=== PATIENT | female | born 1985 | race Caucasian/White ===

== ENCOUNTER 2020-05-18 01:33 | Emergency (ER) | payer MEDICAID, SELFPAY ==
[2020-05-18 01:40] VITALS: BP 146/87; PULSE 107; RESP 18; TEMP 36.7; O2SAT 98; BMI 25.1
--- NOTE | 2020-05-18 01:49 | ECG_ITS ---
Test Reason : CP Blood Pressure : / mmHG Vent. Rate : 083 BPM Atrial Rate : 083 BPM P-R Int : 150 ms QRS Dur : 084 ms QT Int : 396 ms P-R-T Axes : 041 044 025 degrees QTc Int : 465 ms Normal sinus rhythm with sinus arrhythmia Poor R progression anterior leads, possibly from lead placement or body habitus Otherwise Normal ECG No previous ECGs available Referred By: Barbra Ramires Electronically Signed By:GILBERT GARCIA
--- NOTE | 2020-05-18 02:36 | XR_ITS ---
EXAMINATION: XR CHEST CLINICAL INFORMATION: Lungs burning COMPARISON: None TECHNIQUE: Frontal view of the chest was obtained. FINDINGS: Lung volumes are symmetric. No focal consolidation is seen. No evidence of pneumothorax, pleural effusion, or pulmonary edema. The cardiomediastinal contour is unremarkable. No acute osseous findings are seen. XR/XR chest 1V IMPRESSION: No acute cardiopulmonary findings.
--- NOTE | 2020-05-18 02:38 | ED.CHESTPAIN ---
HPI - Chest Pain General Chief Complaint: Chest Pain Stated Complaint: CHEST TIGHTNESS Time Seen by Provider: 05/18/20 01:49 Source: patient Mode of arrival: ambulatory Limitations: no limitations History of Present Illness HPI narrative: Patient comes emergency room complaining of chest tightness, burning sensation in her lungs. Patient states it has been present for about a week now. Patient states that she is concerned that 1 week ago when she went to the [facility], they did a quick physical exam and they told the patient that she has a heart murmur. Patient states this is the 1st time that she hears that she has a heart murmur. Patient admits to continue using IV drugs. Last use was this morning MD complaint: chest discomfort Related Data Allergies Allergy/AdvReac Type Severity Reaction Status Date / Time No Known Allergies Allergy Verified 05/18/20 01:49 Review of Systems Review of Systems: Constitutional : No Weight loss, No Fever, No Chills, No Night Sweats, No Fatigue, No Malaise ENT/Mouth : No Hearing loss, No Ear Pain, No Nasal Congestion, No Sinus Pain, No Hoarseness, No sore throat, No Rhinorrhea, No Swallowing Difficulty Eyes: No Eye Pain, No Swelling, No Redness, No Foreign Body, No Discharge, No Vision Changes Cardiovascular : Complaining of chest tightness No SOB, No Dyspnea on Exertion, No Orthopnea, No Edema, No Palpitations Respiratory : No Cough, No Sputum, No Wheezing, No Smoke Exposure, No Dyspnea, complaining lung burning sensation in the lungs Gastrointestinal : No Nausea, No Vomiting, No Diarrhea, No Constipation, No abdominal Pain, No Hematochezia, No Melena Genitourinary : no irregular bleeding, No Dysuria, No Urinary Frequency, No Hematuria, No Urinary Incontinence, No Urgency, No Flank Pain, No Urinary Flow Changes, No Hesitancy Musculoskeletal : No joint pain, No Myalgias, No Joint Swelling Skin : No Skin Lesions, No rash Neuro : No Weakness, No Numbness, No Paresthesias, No Loss of Consciousness, No Dizziness, No Headache Psych : No Anxiety/Panic, No Depression, No SI/HI/AH/VH, No Social Issues, Heme/Lymph: No Bruising, No Bleeding,No Lymphadenopathy Endocrine : No Polyuria, No Polydipsia, No Temperature Intolerance PMFSH Past Medical History Medical History No known health problems Social History Social History Advance Directives: No Advance Directives Information Provided: No Physical Exam Vital Signs: Vital Signs: Last Vital Signs Temp 98.1 F 05/18/20 01:40 Pulse 107 H 05/18/20 01:40 Resp 18 05/18/20 01:40 BP 146/87 H 05/18/20 01:40 Pulse Ox 98 05/18/20 01:40 Body Mass Index 25.1 Appearance: Alert. Oriented X3. No acute distress. Eyes: Pupils equal, round and reactive to light. ENT: Pharynx normal. Neck: Normal inspection. Neck supple. No lymph nodes noted. No crepitus CVS: Normal heart rate and rhythm. Pulses normal. Normal S1 and S2, soft 2/6 systolic murmur Respiratory: No respiratory distress. Breath sounds normal. No Wheezing. No rales Abdomen: Soft and nontender. No rigidity. No distention. good BS x4 Skin: Skin warm and dry. Normal skin color. Normal skin turgor. Extremities: No lower extremity edema. No lower extremity edema. No Lacerations. No Rash Neuro: Oriented X 3. No motor deficit. No sensory deficit. Moving all extermities. No slurred speech. Course Course Course Narrative: I discussed the patient with Dr. Dorado. Patient has a new murmur to her knowledge, patient has no fever, no chills, not elevated white blood cell count, however patient does have 2/6 systolic murmur, patient is asymptomatic and feeling well otherwise. Patient is an active IV drug user. Endocarditis needs to be ruled out. Patient does not have a primary care physician. In the morning, the hospitalist day team will help decide if the patient is going to be admitted and get an echocardiogram as an inpatient, or keep the patient in the ER, get an echocardiogram done and if negative, discharge the patient. Pending admission versus discharge from the ER. I discussed the above-mentioned plan with the patient, patient states that the physician who did the physical exam at the methadone clinic and heard the murmur, ordered an outpatient echocardiogram and soon she will know when her appointment for the echocardiogram is. At this time, patient's chemistry is pending. Patient is requesting to be discharged because she needs to be at work in less than an hour. Unfortunately, patient's chemistry hemolyzed twice. At this time, sepsis is not suspected, there is very low suspicion for endocarditis, patient is asymptomatic, white blood cell count is within normal limits, no lactic acidosis, no fever. Patient states she feels completely normal at this time. Patient will follow-up as scheduled for her echocardiogram. I discussed with the patient that if for any reason she is unable to get an echocardiogram, to return to emergency room MDM - Chest Pain Lab Data Result diagrams: 05/18/20 03:35 05/18/20 03:08 Labs: Lab Results 05/18/20 05/18/20 05/18/20 Range/Units 02:56 02:56 03:07 WBC (4.8-10.8) X10*3/uL RBC (4.20-5.50) X10*6/uL Hgb (12.0-16.0) g/dl Hct (37-47) % MCV (80-98) fL MCH (27.0-33.0) pg MCHC (31.0-35.0) g/dl RDW (11.0-16.0) % Plt Count (160-400) X10*3/uL MPV (9.4-12.3) fL Immature Gran % (Auto) (0.0-0.4) % Neut % (Auto) (45-73) % Lymph % (Auto) (20-40) % [place] % (Auto) (2-11) % Eos % (Auto) (0-4) % Baso % (Auto) (0-2) % Lymph # (Auto) (1.2-4.9) X10*3/uL [place] # (Auto) (0.1-1.2) X10*3/uL Eos # (Auto) (0.0-0.4) X10*3/uL Baso # (Auto) (0.0-0.2) X10*3/uL Abs Immat Gran (auto) (0.00-0.03) X10*3/uL Absolute Neuts (auto) (2.0-8.3) X10*3/uL Absolute Nucleated RBC (0.0-0.012) X10*3/uL Nucleated RBC % (auto) (0.0-0.2) /100WBC Lactic Acid (0.5-2.0) mmol/L Troponin I High Sens < 3.5 (<3.5-17.0) ng/L Urine Color YELLOW Urine Appearance CLEAR Urine pH 6.5 (5.0-8.0) Ur Specific [place] 1.010 (1.005-1.025) Urine Protein NEG (NEG-TRACE) MG/DL Urine Glucose (UA) NEG (NEG) MG/DL Urine Ketones NEG (NEG) MG/DL Urine Blood NEG (NEG) Urine Nitrite NEG (NEG) Ur Leukocyte Esterase 1+ H (NEG) Urine RBC 1-4 (0) /HPF Urine WBC 1-4 (0-4) /HPF Ur Squamous Epith Cells 1+ /LPF Urine Bacteria 1+ /LPF Urine Test NEGATIVE (NEGATIVE) Urine Opiates Screen POSITIVE H (Not Detect) Ur Barbiturates Screen Not Detected (Not Detect) Ur Phencyclidine Scrn Not Detected (Not Detect) Ur Amphetamines Screen Not Detected (Not Detect) U Benzodiazepines Scrn Not Detected (Not Detect) Urine Cocaine Screen POSITIVE H (Not Detect) U Marijuana (THC) Screen Not Detected (Not Detect) 05/18/20 05/18/20 Range/Units 03:08 03:35 WBC 5.3 (4.8-10.8) X10*3/uL RBC 3.89 L (4.20-5.50) X10*6/uL Hgb 11.3 L (12.0-16.0) g/dl Hct 34.3 L (37-47) % MCV 88.2 (80-98) fL MCH 29.0 (27.0-33.0) pg MCHC 32.9 (31.0-35.0) g/dl RDW 12.9 (11.0-16.0) % Plt Count 332 (160-400) X10*3/uL MPV 8.3 L (9.4-12.3) fL Immature Gran % (Auto) 0.2 (0.0-0.4) % Neut % (Auto) 49.4 (45-73) % Lymph % (Auto) 43.8 H (20-40) % [place] % (Auto) 5.1 (2-11) % Eos % (Auto) 1.1 (0-4) % Baso % (Auto) 0.4 (0-2) % Lymph # (Auto) 2.3 (1.2-4.9) X10*3/uL [place] # (Auto) 0.3 (0.1-1.2) X10*3/uL Eos # (Auto) 0.1 (0.0-0.4) X10*3/uL Baso # (Auto) 0.0 (0.0-0.2) X10*3/uL Abs Immat Gran (auto) 0.01 (0.00-0.03) X10*3/uL Absolute Neuts (auto) 2.6 (2.0-8.3) X10*3/uL Absolute Nucleated RBC 0.000 (0.0-0.012) X10*3/uL Nucleated RBC % (auto) 0.0 (0.0-0.2) /100WBC Lactic Acid 0.9 (0.5-2.0) mmol/L Troponin I High Sens (<3.5-17.0) ng/L Urine Color Urine Appearance Urine pH (5.0-8.0) Ur Specific [place] (1.005-1.025) Urine Protein (NEG-TRACE) MG/DL Urine Glucose (UA) (NEG) MG/DL Urine Ketones (NEG) MG/DL Urine Blood (NEG) Urine Nitrite (NEG) Ur Leukocyte Esterase (NEG) Urine RBC (0) /HPF Urine WBC (0-4) /HPF Ur Squamous Epith Cells /LPF Urine Bacteria /LPF Urine Test (NEGATIVE) Urine Opiates Screen (Not Detect) Ur Barbiturates Screen (Not Detect) Ur Phencyclidine Scrn (Not Detect) Ur Amphetamines Screen (Not Detect) U Benzodiazepines Scrn (Not Detect) Urine Cocaine Screen (Not Detect) U Marijuana (THC) Screen (Not Detect) ECG Data ECG #1: Attestation: I personally reviewed and interpreted this ECG as follows: (Heart rate 83, sinus rhythm, QTC 465, no ST segment depressions or elevations, no T-wave inversions.) Discharge Plan Discharge Clinical Impression: Atypical chest pain, Newly recognized heart murmur Patient Disposition: Home, Self-Care Instructions: Heart Murmur (ED) Additional Instructions: Please follow-up with your methadone clinic and please make sure that you have a date for your echocardiogram. Please follow-up with your primary care physician tomorrow. If you have any worsening or new symptoms, please return to the emergency room or call 911
[2020-05-18 03:25] LABS: Glucose Urine UA NEG (NEG); Leukocyte Esterase Urine 1+ (NEG); Nitrite Urine NEG (NEG); PH 6.5 (5.0-8.0); Urine Blood NEG (NEG); Urine Ketones NEG (NEG); Urine Protein NEG (NEG-TRACE)
--- NOTE | 2020-05-18 03:30 | PC.NURSE ---
IV PLACED TO [facility], LABS DRAWN TO LAB. PT UP AND WALKS WITH STEADY EVEN GAIT TO RESTROOM FOR URINE SAMPLE TO LAB FOR EVAL. WILL CONTINUE TO MONITOR PT.
[2020-05-18 03:32] LABS: Appearance Urine CLEAR; Bacteria Urine 1+ /LPF; Color Urine YELLOW; Squamous Epithelial Cell Urine 1+ /LPF
[2020-05-18 03:33] LABS: UPreg QC Valid YES; Urine Pregnancy NEGATIVE (NEGATIVE)
[2020-05-18 03:42] LABS: Lactic Acid 0.9 mmol/L (0.5-2.0)
[2020-05-18 03:44] LABS: Basophils Percent Auto 0.4 % (0-2); Eosinophils Absolute Auto 0.1 X10*3/uL (0.0-0.4); Eosinophils Percent Auto 1.1 % (0-4); Hematocrit 34.3 % (37-47); Hemoglobin 11.3 g/dl (12.0-16.0); Imm Gran Abs Auto 0.01 X10*3/uL (0.00-0.03); Imm Gran Pct Auto 0.2 % (0.0-0.4); Lymphocytes Absolute Auto 2.3 X10*3/uL (1.2-4.9); Lymphocytes Percent Auto 43.8 % (20-40); Mean Corpuscular HGB Conc 32.9 g/dl (31.0-35.0); Mean Corpuscular Volume 88.2 fL (80-98); Mean Platelet Volume 8.3 fL (9.4-12.3); Monocytes Absolute Auto 0.3 X10*3/uL (0.1-1.2); Monocytes Percent Auto 5.1 % (2-11); Neutrophils Absolute Auto 2.6 X10*3/uL (2.0-8.3); Neutrophils Percent Auto 49.4 % (45-73); Platelet Count 332 X10*3/uL (160-400); Red Blood Count 3.89 X10*6/uL (4.20-5.50); Red Cell Distribution Width 12.9 % (11.0-16.0); White Blood Count 5.3 X10*3/uL (4.8-10.8)
[2020-05-18 03:47] LABS: MANUAL DIFF FLAG NO
[2020-05-18 03:53] LABS: Troponin-I High Sensitivity < 3.5 ng/L (<3.5-17.0)
--- NOTE | 2020-05-18 03:57 | PC.NURSE ---
PT TO ROOM #9 WITH C/O CHEST TIGHTNESS PT WAS TOLD SHE HAD A HEART MURMUR. PT IS CONCERNED BECAUSE OF IV DRUG ABUSE. PT CHG INTO GOWN. EKG OBTAINED TO . PT ARRIVES ALERT, RESPIRATIONS EASY, N/L. SKIN W/D. PT DENIES ANY OTHER COMPLAINTS.
[2020-05-18 04:02] LABS: Amphetamine Screen Urine Not Detected (Not Detect); Barbiturates, Urine Not Detected (Not Detect); Benzodiazepines Screen Urine Not Detected (Not Detect); Cannabinoid Screen Urine Not Detected (Not Detect); Cocaine Screen Urine POSITIVE (Not Detect); Opiate Screen Urine POSITIVE (Not Detect); Phencyclidine Screen Urine Not Detected (Not Detect)
[2020-05-18 05:29] LABS: Alanine Aminotransferase 22 U/L (0-31); Albumin Level 4.7 g/dL (3.5-5.0); Alkaline Phosphatase 163 U/L (39-117); Anion Gap 14 (12-20); Aspartate Amino Transferase 20 U/L (5-31); Bilirubin Direct < 0.2 mg/dL (0.0-0.5); Bilirubin Total 0.3 mg/dL (0.0-1.0); Blood Urea Nitrogen 8 mg/dL (9-16); Calcium 9.4 mg/dL (8.4-10.2); Carbon Dioxide 27 mmol/L (22-29); Chloride 105 mmol/L (96-108); Creatinine Clr Calc Pharmacy 98.7; Estimated Glomerular Filt Rate > 60; Glucose Random 91 mg/dL (60-115); Potassium 4.3 mmol/l (3.3-5.1); Sodium 142 mmol/L (135-145); Total Protein 8.4 g/dL (6.5-8.0)
== END 2020-05-18 05:05 | disposition home or self-care (01) ==
PROVIDERS: Emergency Provider Emergency Medicine
DX: R07.89 Other chest pain (principal); R01.1 Cardiac murmur, unspecified; F11.20 Opioid dependence, uncomplicated; F17.210 Nicotine dependence, cigarettes, uncomplicated
CPT/HCPCS: 36415; 71045; 80048; 80076; 80307; 81001; 81025; 83605; 84484; 85025; 87040; 87086; 93005; 99283

== ENCOUNTER 2020-05-20 00:14 | Emergency (ER) | payer MEDICAID, SELFPAY ==
[2020-05-20 00:36] VITALS: BP 146/91; PULSE 108; RESP 18; TEMP 36.8; O2SAT 98; BMI 21.7
--- NOTE | 2020-05-20 00:45 | ED_ITS ---
HPI - General Adult General Chief complaint: General Medical Stated complaint: upper abd pain Time Seen by Provider: 05/20/20 00:20 Source: patient and old records reviewed Mode of arrival: ambulatory Limitations: no limitations History of Present Illness HPI narrative: 34 yo female IVDA here with dx new heart murmur on 05/18 she was offered ECHO at that time but she had to leave, she denies fevers, has some vague upper abdominal pain but no n/v/d no dyspnea - she is not toxic, I told her at this time of night I could not obtain STAT ECHO - with this news she decided she didn't want to stay in the ED, she refused repeat labs/testing while in the ED complaint: wants ECHO Onset (ago): day(s) () Location: chest and abdomen Radiation: non-radiation Severity: mild Quality: dull Pain Consistency: constant Relieving factors: none Exacerbating factors: none Associated symptoms: denies other symptoms Treatments prior to arrival: none Related Data Allergies Allergy/AdvReac Type Severity Reaction Status Date / Time No Known Allergies Allergy Verified 05/18/20 01:49 Review of Systems Review of Systems: Constitutional : No Weight loss, No Fever, No Chills, No Fatigue, No Malaise ENT/Mouth : No sore throat, No Rhinorrhea Eyes: No Eye Pain, No Swelling, No Redness Cardiovascular : No Chest Pain, No SOB, No Dyspnea on Exertion, No Orthopnea, No Edema, pos Palpitations Respiratory : No Cough, No Sputum, No Wheezing Gastrointestinal : No Nausea, No Vomiting, No Diarrhea, No Constipation, pos abdominal Pain, No Hematochezia, No Melena Genitourinary : No Dysuria, No Urinary Frequency, No Hematuria, Musculoskeletal : No joint pain, No Myalgias, No Joint Swelling Skin : No Skin Lesions, No rash Neuro : No Weakness, No Numbness, No Dizziness, No Headache Psych : No Anxiety/Panic, No Depression All other systems reviewed and are negative [facility] Past Medical History Attestation statement: The following information was validated with the patient. Medical History Intravenous drug abuse No known health problems Social History Social History (Updated 05/20/20 @ 00:49 by Priyanka Leonard DO) Use of substances other than those prescribed or required for medical reasons: Yes Substance Use Type: IV Drugs Physical Exam Vital Signs: Appearance: Alert. Oriented X3. No acute distress. Eyes: Pupils equal, round and reactive to light. ENT: Pharynx normal. Neck: Normal inspection. Neck supple. CVS: Normal heart rate and rhythm. 2/6 systolic murmur loudest over parasternal area. Pulses normal. Respiratory: No respiratory distress. Breath sounds normal. Abdomen: Soft and non-tender. Skin: Skin warm and dry. Normal skin color. Normal skin turgor. Extremities: No lower extremity edema. No calf ttp Neuro: Oriented X 3. No motor deficit. No sensory deficit. Medical Decision Making MDM Narrative Medical decision making narrative: 34 yo female with IVDA back here as her last visit on 05/18 she was told she had a heart murmur and wanted an ECHO, I told her I could not get an ECHO this time of night and offered to repeat lab studies, EKG - she declined, she has no fevers, no dyspnea, some vague upper abdominal discomfort - she declines any other workup in the ED and wants to follow up with a PCP this week, given her lack of systemic symptoms I doubt she has endocar ditis, she is not toxic appearing Discharge Plan Discharge Clinical Impression: Heart murmur Patient Disposition: Home, Self-Care Instructions: Heart Murmur (ED) Additional Instructions: return to ED for any worsening symptoms or concerns YOU WILL NEED AN ECHO AT SOME POINT TO EVALUATE YOUR VALVES Referrals: Gerardo Cotto MD [Physician] - 2 days (hose suspender cutter at [facility])
--- NOTE | 2020-05-20 00:56 | PC.NURSE ---
PT EVALED BY PROVIDER ON ARRIVAL TO BED 11. LABS WERE OFFERED BY PROVIDER. PT DECLINED. PT ONLY WANTED AN ECHO. PT STATES NO PAIN AT THIS TIME.
== END 2020-05-20 01:12 | disposition home or self-care (01) ==
LOC: HO.ED 00:58
PROVIDERS: Emergency Provider Emergency Medicine
DX: R01.1 Cardiac murmur, unspecified (principal); R10.9 Unspecified abdominal pain
CPT/HCPCS: 99283; 99284